=== PATIENT | female | born 1995 | race African-American/Black ===

== ENCOUNTER 2025-03-22 11:37 | Emergency (ER) | payer MEDICAID, SELFPAY ==
[2025-03-22 11:38] VITALS: BP 155/81; PULSE 78; RESP 16; TEMP 36.6; O2SAT 100; BMI 43.9
[2025-03-22 12:22] VITALS: O2SAT 98
--- NOTE | 2025-03-22 12:25 | ED.VIS.CHEST ---
HPI History of Present Illness Chief Complaint: Shortness of Breath Informant: patient Onset/Context/Timing Onset: Today and Yesterday Activity at onset: gradual Timing: Intermittent Quality: Positive for Sharp Location: Right Chest and Left Chest Current Severity: Mild Maximum Severity: Mild Worsened By: Nothing Relieved By: Nothing Associated Symptoms: Negative for Nausea, Vomiting, Diaphoresis, Dyspnea, Cough, Fever, Lightheadedness, Acid Reflux or Palpitations Narrative Narrative: 29-year-old female currently 9 weeks due to on October 28, 2025. Currently on labetalol which was started about a week or so ago for -induced hypertension. States that she has had intermittent shortness of breath and intermittent nonexertional chest discomfort. She has no history of cardiac disease. No history of DVT or PE. No recent travel surgery immobilization. There is no family history of clotting disorder that she is aware of. Denies any hemoptysis. No calf pain or swelling. Prior Similar Symptoms: No Recent Illness/Hospitalization: No CVD Risk Factors: Positive for Hypertension (-induced hypertension on labetalol.); Negative for Diabetes, Hypercholesterolemia or Smoking PE Risk Factors: Negative for Recent Travel/Surgery, Recent Immobilization, Prior DVT or PE, Cancer or OCP + Smoking + >/=35 TAD Risk Factors: Negative for Marfan's Syndrome [facility] Medical History HTN (hypertension) Home Medications ?Medication ?Instructions ?Recorded ?Last Taken ?Type albuterol sulfate 90 mcg/actuation 2 puff inhalation Q6H PRN PRN 03/22/25 03/21/25 History aerosol inhaler wheezing budesonide-formoterol HFA 160 2 puff inhalation BID 03/22/25 03/21/25 History mcg-4.5 mcg/actuation aerosol inhaler (Symbicort) clotrimazole 1 % topical cream 1 applic topical DAILY 03/22/25 Unknown History (Antifungal (clotrimazole)) diphenhydramine HCl 25 mg capsule 25 mg PO Q6H PRN PRN itch 03/22/25 03/21/25 History (Banophen) ferrous sulfate 325 mg (65 mg 325 mg PO DAILY 03/22/25 03/22/25 History iron) tablet (FeroSul) labetalol 100 mg tablet 100 mg PO BID 03/22/25 03/22/25 History levothyroxine 175 mcg tablet 175 mcg PO DAILY 03/22/25 03/21/25 History pantoprazole 40 mg tablet,delayed 40 mg PO DAILY 03/22/25 03/22/25 History release polyethylene glycol 3350 17 17 g PO DAILY 03/22/25 03/21/25 History gram/dose oral powder vitamins with calcium 1 tab PO DAILY 03/22/25 03/22/25 History no.72-iron 27 mg-folic acid 1 mg tablet (WesTab Plus) pyridoxine (vitamin B6) 25 mg 25 mg PO DAILY 03/22/25 03/22/25 History tablet (Vitamin B-6) Allergy/AdvReac Type Severity Reaction Status Date / Time No Known Allergies Allergy Verified 03/22/25 11:43 Family History no significant family his Surgical History no surgical history Social History Smoking Status: Never smoker ROS ROS ED ROS Narrative Atypical nonexertional chest pain. Cough. Constitutional Constitutional ED: Denies chills or fever(s) Eyes Eyes: Reports none ENT ENT ED: Denies ear pain Cardiovascular Cardiovascular: Reports as per HPI and chest pain; Denies palpitations or racing heartbeat Respiratory/Chest Respiratory/Chest: Reports cough Gastrointestinal Gastrointestinal: Denies abdominal pain Genitourinary Genitourinary ED: Denies dysuria or hematuria Musculoskeletal Musculoskeletal: Denies arthralgias Integumentary Denies abscess or Abrasions Neurologic Neurologic: Denies paresthesias or weakness Psychiatric Psychiatric: Denies anxiety or depression Endocrine Endocrinology: Denies cold intolerance Hematologic/Lymphatic Hematologic/Lymphatic: Denies easy bleeding, easy bruising or lymphadenopathy Allergic/Immunologic Allergic/Immunologic ED: Denies mouth swelling, tongue swelling or urticaria EXAM Physical Exam Narrative Exam Narrative: 29-year-old female vital signs stable afebrile. Initial blood pressure is elevated 155/81. Pulse ox 100% on room air no signs hypoxia. No distress. HEENT exam pupils round react light. Moist mucous membranes. Neck nontender no JVD. No lymphadenopathy. Back nontender. Lungs clear to auscultation bilaterally. Heart regular rhythm no murmur. Chest wall and ribs nontender. Abdomen soft nontender. Normal bowel sounds without peritoneal signs. Moving all 4 extremities. Normal presiding steward strength. Normal dorsi plantarflexion. Equal symmetrical radial pulses. Calves are nontender without edema or cords. Neurologically she is awake alert. Answer questions following commands. no focal motor deficits. Const Vital Signs: 03/22/25 11:38 03/22/25 12:22 03/22/25 12:22 Temperature 97.9 F Temperature Source Oral Pulse Rate 78 Respiratory Rate 16 Respiratory Effort Normal Non-Labored Respiratory Depth Respiratory Pattern Blood Pressure 155/81 H Blood Pressure Mean 105 Pulse Ox 100 98 Oxygen Delivery Method Room Air Room Air 03/22/25 12:23 03/22/25 13:38 03/22/25 14:00 Temperature Temperature Source Pulse Rate 77 Respiratory Rate Respiratory Effort Normal Non-Labored Respiratory Depth Normal Respiratory Pattern Normal Blood Pressure 133/83 H 131/67 H Blood Pressure Mean 99 88 Pulse Ox 99 Oxygen Delivery Method Room Air MDM MDM MDM Narrative Medical decision making narrative: 21-year-old female with -induced hypertension with atypical chest pain. Does not sound cardiac. I do not think this is going to be a PE but she will need a D-dimer and a cardiac workup. Clinically she does not have a pneumonia. Her exam is benign. Repeat exam patient is resting comfortably prior to going to CAT scan for the CTA of her chest. Awaiting that result. She and I discussed her test results so far. Patient will be discharged to home. Follow-up with her [employer]. History & Record Review Discussion w/independent historian: Patient Additional record(s) reviewed:: No prior records Lab Data Attestation: I reviewed the patient's lab results. Lab results narrative: CBC shows white count 8. H&H 10.6 33.5 consistent with anemia . Platelets 331. Electrolytes show gap 14. Normal BUN of 10 creatinine 0.7. Glucose 79. Initial troponin less than 6. D-dimer 0.59. Patient refused chest x-ray. I talked to her due to the elevated D-dimer she will allow the do a CT of the chest. CTA chest shows no PE no dissection. Labs: Laboratory Results - last 24 hr 03/22/25 12:06 WBC 8.3 RBC 4.70 Hgb 10.6 L Hct 33.5 L MCV 71.3 L MCH 22.6 L MCHC 31.6 L RDW Std Deviation 48.1 H RDW Coeff of Makeda 18.8 H Plt Count 331 MPV 11.2 Immature Gran % (Auto) 0.200 Neut % (Auto) 54.1 Lymph % (Auto) 35.9 Carson % (Auto) 7.4 Eos % (Auto) 1.7 Baso % (Auto) 0.7 Absolute Neuts (auto) 4.5 Absolute Lymphs (auto) 2.97 Nucleated RBC % 0 D-Dimer Quant (PE/DVT) 0.59 H* Sodium 136 Potassium 4.0 Chloride 102 Carbon Dioxide 21.1 Anion Gap 14 BUN 10 Creatinine 0.72 Estim Creat Clear Calc 135.24 Est GFR (MDRD) Non-Af 116 BUN/Creatinine Ratio 13.8 Glucose 79 Calcium 9.5 Troponin T High Sens < 6 Radiography Diagnostic Testing: Clinical Impression(s) from Imaging Studies Chest CTA 03/22/25 12:45 IMPRESSION: No acute pulmonary emboli. No focal consolidations. Reading Location: [facility] Chest x-ray patient initially refused. CTA was done due to the elevated D-dimer. No PE no dissection read by the radiologist. Rhythm Strip Rhythm Strip: Sinus Rhythm Rate: 77 Ectopy: None EKG Initial EKG: Attestation: I personally reviewed and interpreted this EKG as follows: Interpretation: Sinus Rhythm and No Acute Injury Pattern Comments: Normal sinus rhythm rate of 77 no acute signs of ID or ischemia. No [id number] Discharge Plan Triage Chief Complaint: Shortness of Breath Other Complaint: Chest Pain ED Provider: Danny Bailey Dx/Rx/DC Orders Clinical Impression: Chest pain of uncertain etiology, First trimester , induced hypertension Instructions: ED Chest Pain, Uncertain Cause, Gestational Hypertension Prescriptions: No Action levothyroxine 175 mcg tablet 175 mcg PO DAILY pyridoxine (vitamin B6) [Vitamin B-6] 25 mg tablet 25 mg PO DAILY pantoprazole 40 mg tablet,delayed release (DR/EC) 40 mg PO DAILY diphenhydramine HCl [Banophen] 25 mg capsule 25 mg PO Q6H PRN PRN (Reason: itch) ferrous sulfate [FeroSul] 325 mg (65 mg iron) tablet 325 mg PO DAILY polyethylene glycol 3350 17 gram/dose powder 17 g PO DAILY labetalol 100 mg tablet 100 mg PO BID albuterol sulfate 90 mcg/actuation HFA aerosol inhaler 2 puff inhalation Q6H PRN PRN (Reason: wheezing) clotrimazole [Antifungal (clotrimazole)] 1 % cream 1 applic topical DAILY Patient Comments: hasnt picked up yet Rx Instructions: for 10 days budesonide-formoterol [Symbicort] 160-4.5 mcg/actuation HFA aerosol inhaler 2 puff inhalation BID WesTab Plus 27 mg iron- 1 mg tablet 1 tab PO DAILY Primary Care Provider: Jose C Canseco Referrals: Jose C Canseco, [employer] [facility] [Primary Care Provider, Medical] Activity Restrictions/Additional Instructions: Follow-up with your [employer] and have your blood pressures rechecked. Your labs and CAT scan look good. No heart attack. No blood clot. Tylenol for pain. Print Language: Syriac Disposition Disposition: Home, Self Care
--- NOTE | 2025-03-22 12:30 | EKG12_ITS ---
Test Reason : CP Blood Pressure : */* mmHG Vent. Rate : 77 BPM Atrial Rate : 77 BPM P-R Int : 150 ms QRS Dur : 72 ms QT Int : 364 ms P-R-T Axes : 69 58 65 degrees QTcB Int : 411 ms Normal sinus rhythm Normal ECG Confirmed by WALLY SAMUELS, LILIANA ([id number]), managing editor PATRIZIA NAVARRO ([id number]) on 03/28/2025 6:15:39 AM Referred By: ANTON Confirmed By: LILIANA LO MD
[2025-03-22 12:31] LABS: Hematocrit 33.5 % (37-47); Hemoglobin 10.6 g/dL (12.0-15.0); Immature Granulocytes Count 0.020 X10^3/uL (0.0-0.0); Mean Corp Hgb Conc 31.6 g/dL (32-36); Mean Corpuscular Volume 71.3 fL (81-99); Mean Platelet Vol. 11.2 fl (6.2-12.0); NRBC Flagged by Analyzer 0 % (0-5); Platelet Count 331 K/mm3 (150-450); RBC Distribution Width CV 18.8 % (11.6-14.6); RBC Distribution Width SD 48.1 fl (35.1-43.9); Red Blood Count 4.70 M/mm3 (4.2-5.4); White Blood Count 8.3 K/mm3 (4.4-11.0)
[2025-03-22 12:45] LABS: D-Dimer Quantitative (DVT/PE) 0.59 FEU/ug/m (0.27-0.49)
--- NOTE | 2025-03-22 12:45 | CT_ITS ---
PROCEDURE: CTA CHEST W/WO CONTRAST 03/22/2025 REASON FOR EXAM: . ATYPICAL CHEST PAIN. ELEVATED D-DIMER. TECHNIQUE: Procedure Code: [id number] Modality: CT Procedure: CTA CHEST W/WO CONTRAST Multiplanar Sagittal and Coronal images were obtained. CONTRAST: 100 mL of Isovue 370 One or more dose reduction techniques were used (e.g., Automated exposure control, adjustment of the mA and/or kV according to patient size, use of iterative reconstruction technique). RADIATION DOSE SUMMARY: DLP: 1044 mGycm COMPARISON: None FINDINGS: PULMONARY ARTERIES: No evidence of pulmonary embolism. LUNGS AND PLEURA: No consolidations. No definite pulmonary edema. No mass or nodule. No pleural effusion. No pneumothorax. MEDIASTINUM: No lymphadenopathy or mass. The heart shows no acute findings. The aorta shows no acute findings. The pulmonary trunk, and branches of the vessels in the mediastinum are within normal limits. SUPRACLAVICULAR AND AXILLARY: No abnormalities seen in these regions. No mass or significant lymphadenopathy. UPPER ABDOMEN: The visualized upper abdomen is unremarkable. BONES AND SOFT TISSUES: The ribs are unremarkable. The visualized spine shows no significant acute findings. No focal bony mass lesions noted. The subcutaneous soft tissues are unremarkable. CT/CTA Chest W/WO Contrast IMPRESSION: No acute pulmonary emboli. No focal consolidations. Reading Location: [id number]
[2025-03-22 13:13] LABS: Anion Gap 14 (5-15); BUN 10 mg/dL (4-19); BUN/Creat Ratio 13.8 RATIO (10-20); Calcium,Total 9.5 mg/dL (7.6-11.0); Carbon Dioxide 21.1 mmol/L (21.0-32.0); Chloride 102 mmol/L (98-108); Estimated Creatinine Clearance 135.24 ml/min (50-250); Glucose 79 mg/dL (70-99); Potassium 4.0 mmol/L (3.3-5.1)
[2025-03-22 13:15] LABS: Troponin T High Sensitivity < 6 ng/L (<=14)
[2025-03-22 13:38] VITALS: BP 133/83; PULSE 77; O2SAT 99
[2025-03-22 14:00] VITALS: BP 131/67
[2025-03-22 15:18] VITALS: BP 128/68; PULSE 70; RESP 16; TEMP 36.8; O2SAT 100
== END 2025-03-22 15:21 | disposition home or self-care (01) ==
PROVIDERS: Emergency Provider Emergency Medicine; PCP Nurse Practitioner; Visit Provider Emergency Medicine
DX: O99.891 Other specified diseases and conditions complicating pregnancy (principal); O13.1 Gestational [pregnancy-induced] hypertension without significant proteinuria, first trimester; R07.9 Chest pain, unspecified; Z79.51 Long term (current) use of inhaled steroids; Z79.899 Other long term (current) drug therapy; Z3A.00 Weeks of gestation of pregnancy not specified
CPT/HCPCS: 71275; 80048; 84484; 85025; 85379; 93005; 99284; Q9967; A4216